=== PATIENT | male | born 1985 | race Caucasian/White ===

== ENCOUNTER 2020-09-26 02:00 | Emergency (ER) | payer MEDICAID, OTHER ==
[~2020-09-26] VITALS: Ht 188 cm; Wt 81.6 kg
[2020-09-26 02:36] VITALS: BP_SYST 132
[2020-09-26] MEDS ORDERED: KETOROLAC TROMETHAMINE 60 MG/2 ML VIAL IM ONE (03:15)
[2020-09-26] MEDS ORDERED: IBUP-1970 PO (04:16)
[2020-09-26 04:22] VITALS: BP_SYST 132
== END 2020-09-26 04:22 | disposition home or self-care (01) ==
LOC: SED 02:00
DX: S60.221A Contusion of right hand, initial encounter (principal); W22.8XXA Striking against or struck by other objects, initial encounter; Y93.89 Activity, other specified; Y92.89 Other specified places as the place of occurrence of the external cause; Y99.8 Other external cause status
CPT/HCPCS: 29125; 73130; 96372; 99283; J1885